=== PATIENT | female | born 1985 | race Caucasian/White ===

== ENCOUNTER 2016-12-03 14:25 | Inpatient (IN) | payer OTHER ==
[2016-12-03] VITALS (7 sets, daily range): BP systolic 121–158; BP diastolic 71–90
[~2016-12-03] VITALS: Ht 157.5 cm; Wt 75.0 kg
[~2016-12-03 14:25] MED LIST: LO-DOSE ASPIRIN81 M2 PO; METHYLDOPA250 MG PO; Motrin PO; PRENATAL TABLE1 EAC3 PO; Percocet 5/325,Endoc PO; SUPER B COMP1 TABLET PO
[2016-12-03] MEDS ORDERED: IBUPROFEN800 MG PO (15:47)
[2016-12-04 04:05] VITALS: BP 131/82
[2016-12-04 07:35] VITALS: BP 126/73
[2016-12-04 13:00] VITALS: BP 124/75
== END 2016-12-04 17:25 | disposition home or self-care (01) | DRG 774 ==
LOC: LDRP-OP 14:25 → 2WEST 14:26 → LDRP-OP 01-17 09:35
PROC: 10E0XZZ Delivery of Products of Conception, External Approach (ICD-10-PCS; principal; 2016-12-03)
DX: O10.02 Pre-existing essential hypertension complicating childbirth (principal); O69.81X1 Labor and delivery complicated by cord around neck, without compression, fetus 1; Z37.0 Single live birth; D75.1 Secondary polycythemia; Z3A.37 37 weeks gestation of pregnancy